=== PATIENT | female | born 1955 | race Caucasian/White ===

== ENCOUNTER 2024-03-21 01:42 | Emergency (ER) | payer OTHER, MEDICAID ==
[~2024-03-21] VITALS: Ht 167.6 cm; Wt 81.6 kg
[2024-03-21 01:51] VITALS: BP_SYST 170; PULSE 109; RESP 19; TEMP 98.6; O2SAT 98
[2024-03-21 04:35] VITALS: BP_SYST 128; PULSE 79; RESP 18; TEMP 98.3; O2SAT 97
[2024-03-21] MEDS ORDERED: VIS25 PO (22:33)
== END 2024-03-21 04:35 | disposition home or self-care (01) ==
LOC: SED 01:42
DX: R40.4 Transient alteration of awareness (principal); F12.929 Cannabis use, unspecified with intoxication, unspecified; I10 Essential (primary) hypertension; Z88.0 Allergy status to penicillin
CPT/HCPCS: 99283

== ENCOUNTER 2024-03-21 21:21 | Emergency (ER) | payer OTHER, MEDICAID ==
[~2024-03-21] VITALS: Ht 154.9 cm; Wt 75.7 kg
[2024-03-21 21:29] VITALS: BP_SYST 154; PULSE 102; RESP 16; TEMP 97.7; O2SAT 95
[2024-03-21] MEDS: LORazepam 1 MG TABLET PO ONE (22:33)
[2024-03-21] MEDS ORDERED: VIS25 PO (22:33)
[2024-03-21] MEDS ORDERED: LORazepam 1 MG TABLET ONE (22:34)
[2024-03-21 22:41] VITALS: BP_SYST 150; PULSE 86; RESP 16; TEMP 97.5; O2SAT 94
== END 2024-03-21 22:41 | disposition home or self-care (01) ==
LOC: SED 21:21
DX: F41.9 Anxiety disorder, unspecified (principal); F15.982 Other stimulant use, unspecified with stimulant-induced sleep disorder; I10 Essential (primary) hypertension; Z88.0 Allergy status to penicillin; Z88.2 Allergy status to sulfonamides; Z79.899 Other long term (current) drug therapy
CPT/HCPCS: 99283